=== PATIENT | male | born 1965 | race Caucasian/White ===

== ENCOUNTER 2017-03-23 21:14 | Emergency (ER) | payer OTHER ==
[~2017-03-23] VITALS: Ht 182.9 cm; Wt 102.0 kg
[~2017-03-23 21:14] MED LIST: ASPI325T39 PO
[2017-03-23 21:20] VITALS: Ht 182.9 cm; Wt 102.0 kg
[2017-03-23] MEDS ORDERED: PROPARACAINE HCL 0.5% OP SOLN 15 ML BTL OP STA (21:26)
[2017-03-23] MEDS ORDERED: ERYTHROMYCIN OP OINT 5 MG/GM 3.5 GM TUBE OP ONE (22:00)
[2017-03-23] MEDS ORDERED: DIPHTHERIA/TETANUS/PERTUSSIS 0.5 ML SYR/VIAL IM. ONE (22:15)
[2017-03-23 22:24] VITALS: BP 145/83; PULSE 86; TEMP 36.8; O2SAT 96
--- NOTE | 2017-03-23 22:24 | EMERGENCY ROOM VISIT NOTE ---
History First contact with patient: 21:22 Chief Complaint: EYE ASSESSMENT Stated Complaint: SOMETHING IN RIGHT EYE History of Present Illness The patient is a 51 year old male who presents to the Emergency Room with complaints of persistent right eye discomfort. The patient reports that he noticed discomfort yesterday while weedeating. He is concerned that he could have poison donald in his eye. He reports that the eye is now red in appearance. He denies any excessive tearing or purulent drainage. He does report mild blurred vision with photosensitivity. He rates his discomfort a 5 out of 10. Patient is uncertain of his last tetanus immunization. Review of Systems 10 system review was performed and was negative except for pertinent positives and negatives as indicated in history of present illness Past Medical/Surgical History Medical Problems: (1) Diaphragmatic hernia (2) Lumbosacral spondylosis (3) Photokeratitis (4) Reflux esophagitis Family History Cancer Diabetes mellitus Gallbladder disease Heart disease Hypertension Lung disease Social History Smoking Status: Never Smoker Alcohol Use: none Marital Status: in relationship Housing Status: lives with significant other Occupation Status: employed Current/Historical Medications No Active Prescriptions or Reported Meds Allergies Coded Allergies: Codeine (Unverified Allergy, Unknown, rxn when younger., 03/08/16) Physical Exam Vital Signs Date Time Temp Pulse Resp B/P (MAP) Pulse Ox O2 Delivery O2 Flow Rate FiO2 03/23/17 21:20 36.8 90 18 145/83 96 Room Air Right Eye Acuity: 20/50 Left Eye Acuity: 20/30 Physical Exam CONSTITUTIONAL: Healthy and well nourished. Alert and oriented X 3 with positive affect. HEENT: Normocephalic, atraumatic. Pupils equal, round and reactive. The right eye conjunctiva is injected. No mucopurulent or bloody drainage. EOMs intact without discomfort. No trauma, ecchymosis or erythema of the eyelids. NECK: Full active range of motion without discomfort. INTEGUMENTARY: No rash or other significant dermatologic conditions noted. NEUROLOGIC: Cranial nerves II-XII grossly intact. Medical Decision & Procedures Medications Administered Medications (Trade) Dose Ordered Sig/Shama Route Start Time Stop Time Status Last Admin Dose Admin Erythromycin (Erythromycin Oph Oint) 1 appln NOW ONCE OP 03/23/17 22:00 03/23/17 22:01 DC 03/23/17 22:00 1 APPLN Diphtheria/ Pertussis/Tetanus Vacc (Adacel Inj) 0.5 ml ONCE ONCE IM. 03/23/17 22:15 03/23/17 22:16 DC 03/23/17 22:06 0.5 ML Procedure Slit lamp and fluorescein exam were performed under anesthesia using Alcaine eyedrops. 2 drops were applied with complete resolution of his discomfort. Slit exam shows a small metallic foreign body near the central axis of vision at 9:00. Negative hyphema. Using an Marlen brush, the metal was successfully removed. There was a small residual rust ring that was also debrided with the [place] brush. Slit and exam shows no additional corneal abrasions. Negative Vianca test or corneal streaming with gentle pressure. ED Course Patient history and physical exam were performed. Nurse's notes were reviewed. Vital signs were reviewed and normal. Visual acuity was also noted. The patient was administered Adacel IM. Slit lamp and fluorescein exam confirmed a metallic corneal foreign body that was removed with an [place] brush. Residual rust ring was also debrided. The patient was dispensed erythromycin ophthalmic ointment, and instructions for its use. He was encouraged to intermittently apply ice/cool compress, and wear sunglasses as needed for additional relief. Ibuprofen and Tylenol in alternating fashion as needed for additional pain. The patient refused any prescription analgesics. The patient was instructed to follow-up with an sales representative marine supplies, or return to the emergency department over the weekend if symptoms are not improving within the next 48 hours, or start to worsen. The patient was happy with plan of care, voiced understanding of all discharge instructions, and denied any discomfort at the conclusion of my exam. Medical Decision Impression Primary Impression: Foreign body of right cornea Departure Information Dispostion Home / Self-Care Prescriptions No Active Prescriptions or Reported Meds Forms HOME CARE DOCUMENTATION FORM, IMPORTANT VISIT INFORMATION Patient Instructions My [facility], ED Foreign Body Cornea W Rust Ring Additional Instructions Erythromycin ointment 1 cm strip every 6 hrs (while awake) for 5-7 days. Ibuprofen 800 mg and/or Tylenol 1000 mg every 8 hours. You may also alternate these medications for more effective pain relief: Ibuprofen --4 HRS--> Tylenol --4 HRS--> ibuprofen --4 HRS--> Tylenol .... You may also intermittently apply a cool compress and wear sunglasses for additional relief. Return to the emergency department, or follow-up with an sales representative [employer] if no improvement within 48 hrs. Return to the emergency department for any worsening symptoms. Problem Qualifiers Primary Impression: Foreign body of right cornea Encounter type: initial encounter Qualified Codes: T15.01XA - Foreign body in cornea, right eye, initial encounter
== END 2017-03-23 22:15 | disposition home or self-care (01) ==
LOC: C.EDB 21:15 → C.EDD 22:15
DX: T15.01XA Foreign body in cornea, right eye, initial encounter (principal); X58.XXXA Exposure to other specified factors, initial encounter; Y93.H9 Activity, other involving exterior property and land maintenance, building and construction; K44.9 Diaphragmatic hernia without obstruction or gangrene; M47.817 Spondylosis without myelopathy or radiculopathy, lumbosacral region; K21.0 Gastro-esophageal reflux disease with esophagitis; Z83.3 Family history of diabetes mellitus; Z82.49 Family history of ischemic heart disease and other diseases of the circulatory system; Z23 Encounter for immunization